=== PATIENT | female | born 1985 | race Caucasian/White ===

== ENCOUNTER 2021-07-27 09:55 | Emergency (ER) | payer MEDICAID, OTHER ==
[~2021-07-27] VITALS: Ht 170.2 cm; Wt 77.1 kg
[~2021-07-27 09:55] MED LIST: PREN-129 OR
[2021-07-27 10:10] VITALS: BP 177/103
== END 2021-07-27 11:10 | disposition left against medical advice (07) ==
LOC: ER 09:55
DX: M79.605 Pain in left leg (principal); M79.604 Pain in right leg; R22.43 Localized swelling, mass and lump, lower limb, bilateral; Z53.21 Procedure and treatment not carried out due to patient leaving prior to being seen by health care provider

== ENCOUNTER 2022-02-25 03:51 | Emergency (ER) | payer MEDICAID, OTHER ==
[~2022-02-25] VITALS: Ht 157.5 cm; Wt 79.8 kg
[2022-02-25 06:16] VITALS: BP 179/105
[2022-02-25] MEDS ORDERED: IBUP800T27 PO (07:32)
[2022-02-25] MEDS ORDERED: IBUPROFEN 800 MG TAB PO ONE (07:45)
== END 2022-02-25 07:48 | disposition home or self-care (01) ==
LOC: ER 03:51
DX: S93.401A Sprain of unspecified ligament of right ankle, initial encounter (principal); I10 Essential (primary) hypertension; Z98.51 Tubal ligation status; Z88.6 Allergy status to analgesic agent; V43.52XA Car driver injured in collision with other type car in traffic accident, initial encounter; Y93.89 Activity, other specified; Y92.410 Unspecified street and highway as the place of occurrence of the external cause; Y99.8 Other external cause status
CPT/HCPCS: 73610

== ENCOUNTER 2022-07-07 12:58 | Emergency (ER) | payer MEDICAID, OTHER ==
[~2022-07-07 12:58] MED LIST changes: +IBUP800T27 PO
[2022-07-07 13:19] LABS: Basophils # (auto) 0.1 10 ^3/uL (0-0.2); Basophils % (auto) 0.9 % (0.0-2.0); Eosinophils # (auto) 0.2 10 ^3/uL (0-0.8); Hematocrit 41.9 % (36.0-46.0); Hemoglobin 13.9 g/dL (12.2-16.2); Lymphocytes # (auto) 1.9 10 ^3/uL (0.4-5.4); Lymphocytes % (auto) 21.8 % (10.0-50.0); Mean Corpuscular Hemoglobin 27.9 pg (28.0-32.0); Mean Corpuscular Hgb Conc. 33.2 g/dL (32.0-36.0); Monocytes # (auto) 0.5 10 ^3/uL (0-1.3); Monocytes % (auto) 6.2 % (0.0-12.0); Neutrophils # (auto) 6.1 10 ^3/uL (1.6-8.6); Neutrophils % (auto) 69.1 % (37.0-80.0); Nucleated Red Blood Cells % 0.1 %; Red Blood Cells 4.99 10^6/uL (4.0-5.20); Red Cell Distribution Width 14.1 % (11.8-14.3); White Blood Cell 8.7 10^3/uL (4.4-10.8)
[2022-07-07 13:49] LABS: Albumin 4.2 g/dL (3.4-5.0); Calcium 8.9 mg/dL (8.5-10.1); Magnesium 2.2 mg/dL (1.6-2.6)
[2022-07-07 13:52] LABS: BUN/Creatinine Ratio 21.4; Bilirubin, Total 0.4 mg/dL (0.2-1.0); Total Protein 7.4 g/dL (6.4-8.2)
[2022-07-07 15:34] LABS: Urine Bacteria FEW /hpf (None Seen); Urine Blood Negative /uL (Negative); Urine Specific Gravity 1.014 (1.001-1.035); Urine WBC 24 /hpf (0 - 5)
[2022-07-07 15:54] LABS: Alcohol, Urine < 3.0 mg/dL (0-10); Amphetamine Screen, Urine NEGATIVE (NEGATIVE); Barbiturate Scree,Urine NEGATIVE (NEGATIVE); Benzodiazephine Screen, Urine NEGATIVE (NEGATIVE); Cannabinoid Screen, Urine NEGATIVE (NEGATIVE); Cocaine Screen, Urine NEGATIVE (NEGATIVE); Opiate Scree,Urine NEGATIVE (NEGATIVE); Phencyclidine Screen, Urine NEGATIVE (NEGATIVE)
[2022-07-07] MEDS: KETOROLAC TROMETH 60MG/2ML VIAL IM ONE (17:08)
[2022-07-07] MEDS: LABETALOL HCL 5 MG/ML 4ML SYRINGE IV ONE ×2 (18:01→21:40)
[2022-07-07] MEDS: NITROGLYCERIN 0.4 MG SL TAB SL ONE (19:10)
[2022-07-07] MEDS: HYDROcodone-ACET 5/325MG TAB PO ONE (19:10)
[2022-07-07 21:03] VITALS: BP 161/88
[2022-07-08] MEDS ORDERED: NITR-87 PO (00:26)
== END 2022-07-07 21:43 | disposition home or self-care (01) ==
LOC: ER 12:58
DX: R07.89 Other chest pain (principal); N39.0 Urinary tract infection, site not specified; I16.0 Hypertensive urgency; J45.909 Unspecified asthma, uncomplicated; Z98.51 Tubal ligation status
CPT/HCPCS: 36415; 71046; 80053; 80307; 81001; 81025; 83735; 84484; 84702; 85025; 85379; 93005; 96372; 96374; 99285; J1885; J3490

== ENCOUNTER 2022-10-27 03:32 | Emergency (ER) | payer OTHER ==
[~2022-10-27] VITALS: Ht 157.5 cm; Wt 84.1 kg
[~2022-10-27 03:32] MED LIST changes: +NITR-87 PO
[2022-10-27] MEDS ORDERED: LABETALOL HCL 5 MG/ML 4ML SYRINGE IV ONE (04:00)
[2022-10-27] MEDS ORDERED: ACETAMINOPHEN 325 MG TAB PO ONE (04:00)
[2022-10-27] MEDS ORDERED: DexAMETHasone SOD PHOS 10MG/1ML VIAL INJ IV ONE (05:00)
[2022-10-27] MEDS ORDERED: fentaNYL CITRATE 100 MCG/2 ML VL IV ONE (05:00)
[2022-10-27 05:13] LABS: Basophils # (auto) 0 10 ^3/uL (0-0.2); Basophils % (auto) 0.6 % (0.0-2.0); Eosinophils # (auto) 0.2 10 ^3/uL (0-0.8); Eosinophils % (auto) 2.3 % (0.0-7.0); Hematocrit 40.3 % (36.0-46.0); Hemoglobin 13.8 g/dL (12.2-16.2); Lymphocytes # (auto) 2.6 10 ^3/uL (0.4-5.4); Lymphocytes % (auto) 36.1 % (10.0-50.0); Mean Corpuscular Hemoglobin 28.4 pg (28.0-32.0); Mean Corpuscular Hgb Conc. 34.2 g/dL (32.0-36.0); Monocytes # (auto) 0.5 10 ^3/uL (0-1.3); Monocytes % (auto) 6.7 % (0.0-12.0); Neutrophils # (auto) 3.9 10 ^3/uL (1.6-8.6); Neutrophils % (auto) 54.3 % (37.0-80.0); Nucleated Red Blood Cells % 0.1 %; Red Blood Cells 4.85 10^6/uL (4.0-5.20); Red Cell Distribution Width 14.3 % (11.8-14.3); White Blood Cell 7.3 10^3/uL (4.4-10.8)
[2022-10-27 05:18] LABS: Albumin 3.9 g/dL (3.4-5.0); Calcium 7.9 mg/dL (8.5-10.1); Potassium 3.9 mmol/L (3.5-5.1)
[2022-10-27 05:21] LABS: BUN/Creatinine Ratio 23.7; Bilirubin, Total 0.3 mg/dL (0.2-1.0); Total Protein 6.8 g/dL (6.4-8.2)
[2022-10-27] MEDS ORDERED: IOHEXOL 300 MG/ML 100ML BOTTLE IJ ONE (06:04)
[2022-10-27 10:00] VITALS: BP 132/78
[2022-10-27] MEDS ORDERED: DICL50TA2 PO (11:18)
[2022-10-27] MEDS ORDERED: TRAM50TA2 PO (11:18)
== END 2022-10-27 11:42 | disposition still patient (30) ==
LOC: ER 03:32
DX: J02.9 Acute pharyngitis, unspecified (principal); R10.2 Pelvic and perineal pain; J45.909 Unspecified asthma, uncomplicated; I10 Essential (primary) hypertension; Z88.8 Allergy status to other drugs, medicaments and biological substances; Z79.899 Other long term (current) drug therapy; Z98.51 Tubal ligation status; Z20.822 Contact with and (suspected) exposure to COVID-19
CPT/HCPCS: 36415; 70491; 71045; 80053; 84484; 84702; 85025; 87070; 87426; 87880; 93005; 96374; 96375; 99285; J1100; J3010; J3490; Q9967

== ENCOUNTER 2022-12-30 09:56 | Emergency (ER) | payer OTHER ==
[~2022-12-30] VITALS: Ht 157.5 cm; Wt 81.8 kg
[~2022-12-30 09:56] MED LIST changes: +DICL50TA2 PO; +TRAM50TA2 PO
[2022-12-30 10:40] VITALS: BP 168/93
[2022-12-30] MEDS ORDERED: IBUPROFEN 800 MG TAB PO ONE (11:00)
[2022-12-30] MEDS ORDERED: IBUP800T27 PO (11:05)
== END 2022-12-30 11:17 | disposition home or self-care (01) ==
LOC: ER 09:56
DX: S92.912A Unspecified fracture of left toe(s), initial encounter for closed fracture (principal); I10 Essential (primary) hypertension; Z88.5 Allergy status to narcotic agent; Z88.6 Allergy status to analgesic agent; Z98.51 Tubal ligation status; X58.XXXA Exposure to other specified factors, initial encounter; Y93.89 Activity, other specified; Y92.89 Other specified places as the place of occurrence of the external cause; Y99.8 Other external cause status
CPT/HCPCS: 73630